=== PATIENT | male | born 1970 | race Caucasian/White ===

== ENCOUNTER 2016-10-28 15:46 | Emergency (ER) | payer BC ==
[2016-10-28 16:00] VITALS: BP 117/72; O2SAT 97
--- NOTE | 2016-10-28 16:41 | ERPHSYRPT ---
- History of Present Illness Time Seen by Provider: 10/28/16 16:35 Source: patient Exam Limitations: no limitations Patient Subjective Stated Complaint: pt co pain to lower back, states was at work and lifting 50 lb bags of sand and rock and then started having right lower back pain Triage Nursing Assessment: pt alert, resp easy, skin w/d , walked in without difficulty Physician History: Pt. lifted 50lbs bags at work and felt R sided back pain. States pain was sharp and rad to R buttocks area. States pain worse with inspiration and movement and decrease with sitting still. No urinary/bowel incontinence.. Pt. with congenital with L UE hemiparalysis. Timing/Duration: hour(s) (4) Method of Injury: lifting Quality: sharp Back Pain Location: lumbar spine Back Pain Radiation: buttocks Severity of Pain-Max: severe Severity of Pain-Current: moderate Modifying Factors: Improves With: immobilization (improves), movement (worsens) Associated Symptoms: No fever, No urinary incontinence, No loss of bowel control , No light-headedness, No dizziness, No numbness in legs/feet, No weakness, No sensory/motor loss Previous symptoms: other (Back trauma when he was 16) Allergies/Adverse Reactions: No Known Drug Allergies Allergy (Verified 10/28/16 16:01) Hx Tetanus, Diphtheria Vaccination/Date Given: Yes Hx Influenza Vaccination/Date Given: No Hx Pneumococcal Vaccination/Date Given: No Immunizations Up to Date: Yes - Review of Systems Constitutional: No Fever, No Chills Eyes: No Symptoms Ears, Nose, & Throat: No Symptoms Respiratory: No Cough, No Dyspnea Cardiac: No Chest Pain, No Edema, No Syncope Abdominal/Gastrointestinal: No Abdominal Pain, No Nausea, No Vomiting, No Diarrhea Genitourinary Symptoms: No Dysuria Musculoskeletal: Back Pain, Injury, No Neck Pain Skin: No Rash Neurological: No Dizziness, No Focal Weakness, No Gait Changes, No Sensory Changes Psychological: No Symptoms Endocrine: No Symptoms All Other Systems: Reviewed and Negative - Past Medical History Pertinent Past Medical History: No Neurological History: No Pertinent History ENT History: No Pertinent History Cardiac History: No Pertinent History Respiratory History: No Pertinent History Endocrine Medical History: Diabetes Type II Musculoskeletal History: No Pertinent History GI Medical History: No Pertinent History History: No Pertinent History Psycho-Social History: No Pertinent History Male Reproductive Disorders: No Pertinent History Other Medical History: Paralysis of left arm since . Had muscle graft to this arm. Donor site from the back. This has given him some movement of the arm. - Past Surgical History Past Surgical History: Yes Neuro Surgical History: No Pertinent History Cardiac: No Pertinent History Respiratory: No Pertinent History Gastrointestinal: Other Genitourinary: No Pertinent History Musculoskeletal: Orthopedic Surgery, Other Male Surgical History: No Pertinent History Other Surgical History: gastric bypass - Social History Smoking Status: Never smoker Exposure to second hand smoke: No Drug Use: none Patient Lives Alone: No - Nursing Vital Signs Temperature: 97.0 F Temperature Source: Oral Pulse Rate: 94 Respiratory Rate: 16 Pain Intensity: 8 - Physical Exam General Appearance: mild distress, alert Eye Exam: PERRL/EOMI, eyes nml inspection Neck Exam: normal inspection, non-tender, supple, full range of motion, No meningismus, No midline tenderness Respiratory Exam: normal breath sounds, lungs clear, No respiratory distress Cardiovascular Exam: regular rate/rhythm, normal heart sounds Gastrointestinal Exam: soft, No tenderness, No mass Back Exam: vertebral tenderness (R paralumbar area/), decreased range of motion , muscle spasm (R paralumbar) Extremity Exam: normal inspection, normal range of motion, other, No calf tenderness, No pedal edema Neurologic Exam: alert, oriented x 3, cooperative, ophthalmic tech II-XII nml as tested, normal mood/affect, nml station & gait, sensation nml, other (Pt. with L UE weakness of arm flex/extension simialr to baseline. RUE/LE and LLE with good strength), No motor deficits, No abnormal gait Skin Exam: normal color, warm, dry, No rash SpO2: 97 Oxygen Delivery: Room Air - Radiology Exams L-Spine X-ray Interpretation: Interpreted by me, No Fracture, No Subluxation Ordered Tests: Active Orders 24 hr Category Date Time Status LUMBAR COMPLETE (MIN 4 VIEWS) Stat Exams 10/28/16 16:51 Taken Medication Summary Discontinued Medications Generic Name Dose Route Start Last Admin Trade Name Freq PRN Reason Stop Dose Admin Ketorolac Tromethamine 60 mg 10/28/16 16:52 Toradol 30 Mg Injection IM 10/28/16 16:53 STAT ONE Ketorolac Tromethamine Confirm 10/28/16 17:06 Toradol 30 Mg Injection Administered 10/28/16 17:07 Dose 60 mg .ROUTE .STK-MED ONE - Progress Progress: improved Progress Note: 10/28/16 17:23 Pt. given Toradol with some relief of symptoms Counseled pt/family regarding: diagnosis, rad results - Departure Time of Disposition: 17:23 Departure Disposition: Home Clinical Impression: Lumbar strain Condition: Stable Critical Care Time: No Instructions: Low Back Pain Additional Instructions: Motrin 800mg every 8 hrs with food for pain RX: Flexeril Return for worse pain, numbness, weakness or any problems. Forms: Work/School Release Form Prescriptions: Cyclobenzaprine HCl [Flexeril] 10 mg PO Q8H PRN PRN #14 tablet PRN Reason: Muscle Spasms
[2016-10-28] MEDS ORDERED: TORAdol 30 mg Injection IM ONE (16:52)
[2016-10-28] MEDS ORDERED: TORAdol 30 mg Injection ONE (17:06)
[2016-10-28 17:41] VITALS: PULSE 70
--- NOTE | 2016-10-29 09:00 | XRAY ---
Indication: Low back pain following lifting injury. Comparison: None 5 views of the lumbar spine demonstrates 5 lumbar vertebral segments in normal alignment with minimal L5-S1 disc space narrowing and bilateral degenerative facet arthropathy. Previous gastric bypass surgery. No other bony, articular, or soft tissue abnormalities.
== END 2016-10-28 17:40 | disposition home or self-care (01) ==
LOC: ED 15:46
DX: S39.012A Strain of muscle, fascia and tendon of lower back, initial encounter (principal); M54.5 Low back pain; X50.0XXA Overexertion from strenuous movement or load, initial encounter; Y92.149 Unspecified place in prison as the place of occurrence of the external cause; Y99.0 Civilian activity done for income or pay
CPT/HCPCS: 72110; 96372; 99284; J1885

== ENCOUNTER 2019-06-11 18:20 | Emergency (ER) | payer BC ==
[2019-06-11 18:32] VITALS: BP 124/71; PULSE 96; O2SAT 100
--- NOTE | 2019-06-11 19:20 | ERPHSYRPT ---
- History of Present Illness Time Seen by Provider: 06/11/19 18:35 Historian: patient Exam Limitations: no limitations Patient Subjective Stated Complaint: pt to ER with complaints of lower/ periumbilical abdominal pain x 3 days. pt states its sharp. Triage Nursing Assessment: pt to ER with complaints of lower abdominal / periumbilical pain x 3 days. denies N/V/D. pt states its sharp in nature and constant. Physician History: 48 y/o white male presents with 2 to 3 day h/o worsening abd cramping and burning. pt underwent a gastric bypass 2014. Timing/Duration: day(s) (2 to 3 ) Quality: burning, cramping Abdominal Pain Onset Location: RUQ, epigastric, periumbilical Pain Radiation: no radiation Severity of Pain-Max: mild Severity of Pain-Current: mild Modifying Factors: Improves With: nothing. Worsens With: vomiting Associated Symptoms: denies symptoms, No diarrhea, No nausea, No vomiting Previous symptoms: no prior history Allergies/Adverse Reactions: acetaminophen [From Vicodin] Adverse Reaction (Verified 06/11/19 18:33) hydrocodone [From Vicodin] Adverse Reaction (Verified 06/11/19 18:33) Hx Tetanus, Diphtheria Vaccination/Date Given: Yes Hx Influenza Vaccination/Date Given: No Hx Pneumococcal Vaccination/Date Given: No Immunizations Up to Date: Yes - Review of Systems Constitutional: No Symptoms Eyes: No Symptoms Ears, Nose, & Throat: No Symptoms Respiratory: No Symptoms Cardiac: No Symptoms Abdominal/Gastrointestinal: Abdominal Pain, No Nausea, No Vomiting, No Diarrhea Genitourinary Symptoms: No Symptoms Musculoskeletal: No Symptoms Skin: No Symptoms Neurological: No Symptoms Psychological: No Symptoms Endocrine: No Symptoms Hematologic/Lymphatic: No Symptoms Immunological/Allergic: No Symptoms All Other Systems: Reviewed and Negative - Past Medical History Pertinent Past Medical History: No Neurological History: No Pertinent History ENT History: No Pertinent History Cardiac History: Hypertension Respiratory History: No Pertinent History Endocrine Medical History: No Pertinent History Musculoskeletal History: No Pertinent History GI Medical History: No Pertinent History History: No Pertinent History Psycho-Social History: No Pertinent History Male Reproductive Disorders: No Pertinent History Other Medical History: 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 Gastric bypass - Past Surgical History Past Surgical History: Yes Neuro Surgical History: No Pertinent History Cardiac: No Pertinent History Respiratory: No Pertinent History Gastrointestinal: Other Genitourinary: No Pertinent History Musculoskeletal: Other Male Surgical History: No Pertinent History Other Surgical History: muscle transplant to arm from back 35 years ago, gastric bypass 2016 - Social History Smoking Status: Never smoker Exposure to second hand smoke: Yes Drug Use: none Patient Lives Alone: No - Nursing Vital Signs Nursing Vital Signs: Initial Vital Signs Temperature 98.7 F 06/11/19 18:26 Pulse Rate 96 H 06/11/19 18:26 Respiratory Rate 17 06/11/19 18:26 Blood Pressure 124/71 06/11/19 18:26 O2 Sat by Pulse Oximetry 100 06/11/19 18:26 Pain Scale Pain Intensity 6 - Physical Exam General Appearance: mild distress, alert, anxiety Eye Exam: PERRL/EOMI, eyes nml inspection Ears, Nose, Throat Exam: normal ENT inspection, moist mucous membranes Neck Exam: normal inspection, non-tender, supple, full range of motion Respiratory Exam: normal breath sounds, lungs clear, No chest tenderness, No airway intact Cardiovascular Exam: regular rate/rhythm, normal heart sounds, normal peripheral pulses Gastrointestinal/Abdomen Exam: soft, normal bowel sounds, tenderness, guarding, No rebound Rectal Exam: not done Back Exam: normal inspection, normal range of motion, No CVA tenderness, No vertebral tenderness Extremity Exam: normal inspection, normal range of motion, pelvis stable Neurologic Exam: alert, oriented x 3, cooperative, aqua ammonia operator II-XII nml as tested Skin Exam: normal color, warm, dry Lymphatic Exam: No adenopathy SpO2: 100 O2 Delivery: Room Air Ordered Tests: Active Orders 24 hr Category Date Time Status ABDOMEN AND PELVIS W/0 CONTRAS [CT] Stat Exams 06/11/19 18:42 Taken AMYLASE Stat Lab 06/11/19 19:15 Completed CBC W DIFF Stat Lab 06/11/19 19:15 Completed CMP Stat Lab 06/11/19 19:15 Completed LIPASE Stat Lab 06/11/19 19:15 Completed Lactic Acid Stat Lab 06/11/19 19:09 Completed UA W/RFX UR CULTURE Stat Lab 06/11/19 19:15 Completed Lab/Rad Data: Laboratory Result Diagrams 06/11/19 19:15 06/11/19 19:15 Laboratory Results 06/11/19 06/11/19 06/11/19 Range/Units 19:15 19:15 19:15 WBC 7.8 (4.0-10.5) K/mm3 RBC 4.59 (4.1-5.6) M/mm3 Hgb 12.6 (12.5-18.0) gm/dl Hct 38.1 L (42-50) % MCV 83.0 (78-100) fl MCH 27.5 (26-32) pg MCHC 33.1 (32-36) g/dl RDW 12.9 (11.5-14.0) % Plt Count 216 (150-450) K/mm3 MPV 9.9 H (6-9.5) fl Gran % 63.6 (36.0-66.0) % Eos # (Auto) 0.16 (0-0.5) Absolute Lymphs (auto) 1.85 (1.0-4.6) Absolute Monos (auto) 0.81 (0.0-1.3) Lymphocytes % 23.7 L (24.0-44.0) % Monocytes % 10.4 (0.0-12.0) % Eosinophils % 2.0 (0.00-5.0) % Basophils % 0.3 (0.0-0.4) % Absolute Granulocytes 4.98 (1.4-6.9) Basophils # 0.02 (0-0.4) Sodium 139 (137-145) mmol/L Potassium 4.2 (3.5-5.1) mmol/L Chloride 103 (98-107) mmol/L Carbon Dioxide 31 H (22-30) mmol/L Anion Gap 9.1 (5-15) MEQ/L BUN 15 (9-20) mg/dL Creatinine 0.75 (0.66-1.25) mg/dL Estimated GFR > 60.0 ML/MIN Glucose 99 (74-106) mg/dL Lactic Acid (0.4-2.0) Calcium 9.0 (8.4-10.2) mg/dL Total Bilirubin 0.40 (0.2-1.3) mg/dL AST 31 (17-59) U/L ALT 12 (0-50) U/L Alkaline Phosphatase 67 (38-126) U/L Serum Total Protein 7.1 (6.3-8.2) g/dL Albumin 3.9 (3.5-5.0) g/dL Amylase 98 (30-110) U/L Lipase 257 (23-300) U/L Urine Color YELLOW (YELLOW) Urine Appearance CLEAR (CLEAR) Urine pH 5.0 (5-6) Ur Specific [place] 1.024 (1.005-1.025) Urine Protein NEGATIVE (Negative) Urine Ketones TRACE (NEGATIVE) Urine Blood NEGATIVE (0-5) [place]/ul Urine Nitrite NEGATIVE (NEGATIVE) Urine Bilirubin NEGATIVE (NEGATIVE) Urine Urobilinogen 2 (0-1) mg/dL Ur Leukocyte Esterase NEGATIVE (NEGATIVE) Urine WBC (Auto) NONE (0-5) /HPF Urine RBC (Auto) NONE (0-2) /HPF U Epithel Cells (Auto) NONE (FEW) /HPF Urine Bacteria (Auto) NONE (NEGATIVE) /HPF Urine Mucus (Auto) SLIGHT (NEGATIVE) /HPF Urine Culture Reflexed NO (NO) Urine Glucose 150 (NEGATIVE) mg/dL 06/11/19 Range/Units 19:09 WBC (4.0-10.5) K/mm3 RBC (4.1-5.6) M/mm3 Hgb (12.5-18.0) gm/dl Hct (42-50) % MCV (78-100) fl MCH (26-32) pg MCHC (32-36) g/dl RDW (11.5-14.0) % Plt Count (150-450) K/mm3 MPV (6-9.5) fl Gran % (36.0-66.0) % Eos # (Auto) (0-0.5) Absolute Lymphs (auto) (1.0-4.6) Absolute Monos (auto) (0.0-1.3) Lymphocytes % (24.0-44.0) % Monocytes % (0.0-12.0) % Eosinophils % (0.00-5.0) % Basophils % (0.0-0.4) % Absolute Granulocytes (1.4-6.9) Basophils # (0-0.4) Sodium (137-145) mmol/L Potassium (3.5-5.1) mmol/L Chloride (98-107) mmol/L Carbon Dioxide (22-30) mmol/L Anion Gap (5-15) MEQ/L BUN (9-20) mg/dL Creatinine (0.66-1.25) mg/dL Estimated GFR ML/MIN Glucose (74-106) mg/dL Lactic Acid 1.2 (0.4-2.0) Calcium (8.4-10.2) mg/dL Total Bilirubin (0.2-1.3) mg/dL AST (17-59) U/L ALT (0-50) U/L Alkaline Phosphatase (38-126) U/L Serum Total Protein (6.3-8.2) g/dL Albumin (3.5-5.0) g/dL Amylase (30-110) U/L Lipase (23-300) U/L Urine Color (YELLOW) Urine Appearance (CLEAR) Urine pH (5-6) Ur Specific [place] (1.005-1.025) Urine Protein (Negative) Urine Ketones (NEGATIVE) Urine Blood (0-5) [place]/ul Urine Nitrite (NEGATIVE) Urine Bilirubin (NEGATIVE) Urine Urobilinogen (0-1) mg/dL Ur Leukocyte Esterase (NEGATIVE) Urine WBC (Auto) (0-5) /HPF Urine RBC (Auto) (0-2) /HPF U Epithel Cells (Auto) (FEW) /HPF Urine Bacteria (Auto) (NEGATIVE) /HPF Urine Mucus (Auto) (NEGATIVE) /HPF Urine Culture Reflexed (NO) Urine Glucose (NEGATIVE) mg/dL - Progress Progress: improved Progress Note: 06/11/19 21:33 ct abd/pelvis-new renal nonobstructing stones, mild fecal stasis Counseled pt/family regarding: lab results, diagnosis, need for follow-up, rad results - Departure Departure Disposition: Home Clinical Impression: Abdominal pain, Constipation Condition: Stable Critical Care Time: No Referrals: SAM MARTINEZ MD [Primary Care Provider] - Additional Instructions: drink plenty of fluids. use over the counter milk of magnesia, stool softeners, rectal suppositories or fleets enemas as needed. follow up with primary doctor for persistent symptoms.
[2019-06-11 19:39] LABS: Appearance CLEAR (CLEAR); Bilirubin NEGATIVE (NEGATIVE); Blood NEGATIVE Ery/ul (0-5); Glucose 150 mg/dL (NEGATIVE); Ketones TRACE (NEGATIVE); Leukocyte Esterase NEGATIVE (NEGATIVE); Mucus SLIGHT /HPF (NEGATIVE); Nitrite NEGATIVE (NEGATIVE); Protein,Urine Dip NEGATIVE (Negative); Specific Gravity 1.024 (1.005-1.025); Urobilinogen 2 mg/dL (0-1)
[2019-06-11 19:45] LABS: Absolute Neutrophil Ct (ANC) 4.98 (1.4-6.9); BASOPHIL % 0.3 % (0.0-0.4); Basophil (Absolute #) 0.02 (0-0.4); Eosinophil (Absolute #) 0.16 (0-0.5); Hematocrit 38.1 % (42-50); Hemoglobin 12.6 gm/dl (12.5-18.0); Lymphocyte (Absolute #) 1.85 (1.0-4.6); Lymphocytes % 23.7 % (24.0-44.0); Mean Corpuscular Hemoglobin 27.5 pg (26-32); Mean Corpuscular Hgb Concent. 33.1 g/dl (32-36); Mean Platelet Volume 9.9 fl (6-9.5); Monocyte (Absolute #) 0.81 (0.0-1.3); Monocytes % 10.4 % (0.0-12.0); Neutrophil % 63.6 % (36.0-66.0); Platelet Count 216 K/mm3 (150-450); Red Blood Count 4.59 M/mm3 (4.1-5.6); Red Cell Distribution Width 12.9 % (11.5-14.0); White Blood Count 7.8 K/mm3 (4.0-10.5)
[2019-06-11 19:51] LABS: ALBUMIN 3.9 g/dL (3.5-5.0); ALKALINE PHOSPHATASE 67 U/L (38-126); AMYLASE 98 U/L (30-110); ANION GAP 9.1 MEQ/L (5-15); BLOOD UREA NITROGEN 15 mg/dL (9-20); CHLORIDE 103 mmol/L (98-107); Carbon Dioxide 31 mmol/L (22-30); Creatinine 1 0.75 mg/dL (0.66-1.25); Glucose 99 mg/dL (74-106); LIPASE 257 U/L (23-300); Potassium 4.2 mmol/L (3.5-5.1); SGOT/AST 31 U/L (17-59); SGPT/ALT 12 U/L (0-50); SODIUM 139 mmol/L (137-145); Total Protein 7.1 g/dL (6.3-8.2)
--- NOTE | 2019-06-12 08:39 | XRAY ---
Indication: Abdomen and periumbilical pain. Multiple contiguous axial images obtained through the abdomen and pelvis without contrast as ordered. Comparison: CT renal stone study December 08, 2015. Lung bases demonstrate mild bilateral dependent atelectasis with stable tiny right posterior gutter calcified granuloma. Heart is not enlarged. Incidental bilateral infrahilar and subcarinal calcified nodes. Noncontrasted stomach and bowel loops appear nonobstructed again with previous gastric bypass surgery. Normal appendix. There is mild diffuse scattered colonic fecal debris throughout including the rectum. Left kidney demonstrates 2 new nonobstructing micro-calculi, largest 3-4 mm. Stable 2.2 cm left upper pole renal cyst, calcified splenic granulomas, and benign right adrenal microcalcification. Remaining liver, gallbladder, pancreas, spleen, adrenal glands, kidneys, ureters, bladder, and aorta appear unremarkable for noncontrast exam. Osseous structures intact. Impression: 1. New nonobstructing left renal micro-calculi. 2. Mild fecal stasis without obstruction. 3. Stable left renal cyst, benign right adrenal microcalcification, and evidence for old granulomatous disease. 4. Remaining CT abdomen/pelvis without contrast exam is negative. CT DI 13.62
== END 2019-06-11 21:58 | disposition home or self-care (01) ==
LOC: ED 18:20
DX: R10.9 Unspecified abdominal pain (principal); K59.00 Constipation, unspecified
CPT/HCPCS: 36415; 74176; 80053; 81001; 82150; 83605; 83690; 85025; 99283